=== PATIENT | female | born 1975 | race Two or more races ===

== ENCOUNTER 2023-01-08 09:42 | Emergency (ER) | payer OTHER ==
[~2023-01-08] VITALS: Ht 160 cm; Wt 72.6 kg
== END 2023-01-08 14:17 | disposition home or self-care (01) ==
LOC: ER 09:42
DX: K52.89 Other specified noninfective gastroenteritis and colitis (principal); R10.9 Unspecified abdominal pain
CPT/HCPCS: 36415; 74177; Q9965